=== PATIENT | female | born 1955 | race Two or more races ===

== ENCOUNTER 2023-05-28 10:23 | Emergency (ER) | payer OTHER, MEDICAID ==
[~2023-05-28] VITALS: Ht 165.1 cm; Wt 59.1 kg
[~2023-05-28 10:23] MED LIST: BENA20TA; HYDR25TA4; IBUP800T41; METF100097; PIOG15TA38; SIMV20TA20
[2023-05-28 11:54] VITALS: BP 176/90; TEMP 98.1
[2023-05-28 14:43] VITALS: PULSE 79; RESP 18; O2SAT 99
[2023-05-28] MEDS ORDERED: traMADol HCL 50 MG TAB PO ONE (15:15)
[2023-05-28] MEDS ORDERED: TRAM50TA2 PO (15:44)
[2023-05-28] MEDS ORDERED: NAP500T PO (15:49)
== END 2023-05-28 16:01 | disposition home or self-care (01) ==
LOC: ER 10:23 → EDBD 10:23 → EDUNIT# 10:23 → ER 13:05
DX: S52.592A Other fractures of lower end of left radius, initial encounter for closed fracture (principal); E78.5 Hyperlipidemia, unspecified; Z79.1 Long term (current) use of non-steroidal anti-inflammatories (NSAID); Z79.84 Long term (current) use of oral hypoglycemic drugs; Z79.899 Other long term (current) drug therapy; W01.0XXA Fall on same level from slipping, tripping and stumbling without subsequent striking against object, initial encounter; Y93.K9 Activity, other involving animal care; Y92.89 Other specified places as the place of occurrence of the external cause; Y99.8 Other external cause status
CPT/HCPCS: 29125; 73030; 73060; 73110; 73130